=== PATIENT | female | born 1960 | race Caucasian/White ===

== ENCOUNTER → 2019-06-08 | Outpatient (CLI) | payer OTHER ==
[~2019-06-08] VITALS: Ht 165.1 cm; Wt 55.3 kg
[~2019-06-08] MED LIST: ASPIR 8181 M1 PO; BIOTIN1000 MCG PO; CENTRUM SILVER1 EAC4 PO; FISH OIL 1,001000 M2 PO; HYDROQUINONE TOP; K-DUR 20 MEQ T20 MEQ PO; MAXZIDE-25 MG1 EACH PO; OSTEO BI-FLEX1 EAC1 PO; TRETINOIN20 GM TOP; VITAMIN D-32000 UNIT PO; ZYRTEC10 M5 PO
--- NOTE | 2019-06-10 16:50 | P ---
[facility] [place] [address] [place] [address] PROCEDURE REPORT Name: AJ MCALLISTER [id number] Admission: 06/08/19 ������������������ Attend Phys: Warren Langford Discharge: ������������������ Date of : 60 Report #: [id number] THIS REPORT FOR: //name// CC: Warren Drew DATE OF SERVICE: 06/08/2019 PROCEDURE PERFORMED: Colonoscopy. HISTORY OF PRESENT ILLNESS: The patient is a 58-year-old female with a family history of colon cancer in her mother. Last colonoscopy was 3 years ago, which was negative other than internal hemorrhoids. She denies any abdominal pain. She has had a recent Hemoccult positive stool. She denies any obvious blood in her stools. Plan is for colonoscopy. DESCRIPTION OF PROCEDURE: The risks and benefits of the procedure were explained to the patient, those risks including but not limited to bleeding, perforation and the risk of sedation. She understood these risks and gave informed consent. Sedation was given using propofol per anesthesia. Next, a digital rectal exam was initially performed, which was normal. Next, using a standard Olympus colonoscope, the scope was placed in the patient's anus and advanced under direct vision to the cecum. The overall prep was excellent. The cecum and ileocecal valve were normal in appearance. Ascending, transverse, descending and sigmoid colon were all normal. The rectal mucosa was normal. On retroflexion, small internal hemorrhoid noted, nonbleeding, otherwise normal. Close examination of the anal canal was normal. No evidence of anal fissure. There was no evidence of bleeding throughout the exam today. The scope was then withdrawn and the procedure terminated. The patient tolerated the procedure well. IMPRESSION: 1. Small internal hemorrhoids. 2. Otherwise, normal colonoscopy. RECOMMENDATIONS: 1. Repeat colonoscopy in 5 years. 2. Etiology of Hemoccult positive stool may be secondary to hemorrhoid. [facility] [address] [place] [address] PROCEDURE REPORT Name: AJ MCALLISTER [facility]: [facility]ITAL[facility] [id number] Admission: 06/08/19 ������������������ Attend Phys: Warren Langford Discharge: ������������������ Date of : 60 Report #: [id number] Thank you for allowing me to participate in her care. ��������������������������������������������� <ELECTRONICALLY SIGNED> ���������������������������������������� By: Warren Amador MD ��������������������������������������������� 06/10/19 [id number] Warren Amador MD /nt
== END | disposition home or self-care (01) ==
LOC: GI 07:46
DX: Z12.11 Encounter for screening for malignant neoplasm of colon (principal); K64.8 Other hemorrhoids; I10 Essential (primary) hypertension; Z80.0 Family history of malignant neoplasm of digestive organs; Z79.899 Other long term (current) drug therapy; Z98.890 Other specified postprocedural states; Z88.1 Allergy status to other antibiotic agents; Z88.8 Allergy status to other drugs, medicaments and biological substances; Z79.82 Long term (current) use of aspirin
CPT/HCPCS: 62110; 62900